=== PATIENT | male | born 1950 | race Caucasian/White ===

== ENCOUNTER → 2023-06-04 09:24 | Outpatient (REF) | payer MEDICARE, OTHER, SELFPAY ==
[2023-06-04 12:59] LABS: ALT (SGPT) 20 U/L (0-50); AST (SGOT) 24 U/L (17-59); Albumin 4.3 g/dl (3.5-5.0); Alkaline Phosphatase 49 U/L (38-126); Blood Urea Nitrogen 21 mg/dl (9-20); Carbon Dioxide 26 mmol/L (22-30); Chloride 99 mmol/L (98-107); Glucose 142 mg/dl (70-99); HDL Cholesterol 35 mg/dl; LDL Cholesterol, Calculated 73 mg/dl; Sodium 137 mmol/L (135-145); Total Bilirubin 0.8 mg/dl (0.2-1.3); Total Cholesterol 132 mg/dl (50-199); Total Protein 7.5 g/dl (6.3-8.2); Triglyceride 121 mg/dl (10-149); Very Low Density Lipoprotein 24 mg/dl (0-30); eGFR > 60.00
[2023-06-04 13:01] LABS: Microalbumin, Random Urine 5.2 mg/dl (0.6-1.7)
[2023-06-04 13:07] LABS: Microalbumin/creatinine Ratio 30.7 mg/g
[2023-06-04 13:16] LABS: Glycohemoglobin (HgbA1c) 6.8 % (4.0-5.6)
== END ==
LOC: HWLAB 09:24
PROVIDERS: ATTENDING PHYSICIAN Internal Medicine Endocrinology, Diabetes & Metabolism; FAMILY PHYSICIAN Nurse Practitioner Adult Health
DX: E11.40 Type 2 diabetes mellitus with diabetic neuropathy, unspecified (principal)
CPT/HCPCS: 36415; 80053; 80061; 82043; 82570; 83036

== ENCOUNTER → 2023-10-19 09:43 | Outpatient (REF) | payer MEDICARE, OTHER, SELFPAY ==
[2023-10-19 13:13] LABS: Glycohemoglobin (HgbA1c) 6.6 % (4.0-5.6)
[2023-10-19 13:15] LABS: ALT (SGPT) 15 U/L (0-50); AST (SGOT) 22 U/L (17-59); Albumin 4.1 g/dl (3.5-5.0); Alkaline Phosphatase 50 U/L (38-126); Blood Urea Nitrogen 14 mg/dl (9-20); Calcium 9.1 mg/dl (8.4-10.2); Carbon Dioxide 29 mmol/L (22-30); Chloride 102 mmol/L (98-107); Glucose 161 mg/dl (70-99); HDL Cholesterol 33 mg/dl; LDL Cholesterol, Calculated 90 mg/dl; Potassium 4.3 mmol/L (3.5-5.1); Sodium 138 mmol/L (135-145); Total Bilirubin 0.5 mg/dl (0.2-1.3); Total Cholesterol 149 mg/dl (50-199); Total Protein 6.9 g/dl (6.3-8.2); Triglyceride 131 mg/dl (10-149); Very Low Density Lipoprotein 26 mg/dl (0-30); eGFR > 60.00
[2023-10-19 14:14] LABS: Microalbumin, Random Urine 1.1 mg/dl (0.6-1.7)
[2023-10-19 14:15] LABS: Microalbumin/creatinine Ratio 9.5 mg/g
== END ==
LOC: HWLAB 09:43
PROVIDERS: ATTENDING PHYSICIAN Internal Medicine Endocrinology, Diabetes & Metabolism; FAMILY PHYSICIAN Nurse Practitioner Adult Health
DX: E11.40 Type 2 diabetes mellitus with diabetic neuropathy, unspecified (principal)
CPT/HCPCS: 36415; 80053; 80061; 82043; 82570; 83036

== ENCOUNTER → 2024-03-24 10:34 | Outpatient (REF) | payer MEDICARE, OTHER, SELFPAY ==
[2024-03-24 13:22] LABS: % Basophils 0.8 % (0-2); % Eosinophils 3.2 % (0-6); % Immature Granulocytes 0.2 % (0-0.5); % Monocytes 6.9 % (1.7-9.3); % Neutrophils 45.9 % (42.2-75.2); Absolute Eosinophils 0.2 10^3/uL (0-0.7); Absolute Lymphocytes 2.3 10^3/uL (1.2-3.4); Absolute Monocytes 0.4 10^3/uL (0.1-0.6); Absolute Neutrophils 2.4 10^3/uL (1.4-6.5); Hematocrit 38.6 % (39.0-52.0); Hemoglobin 12.9 g/dL (13.0-18.0); Mean Corp Hgb Conc. 33.4 g/dL (33.0-37.0); Mean Corpuscular Hgb 28.9 pg (27.0-31.0); Mean Corpuscular Volume 86.5 fL (80.0-94.0); Mean Platelet Volume 9.9 fL (7.4-10.4); Nucleated Red Blood Cells % 0 % (-); Platelet Count 208 10^3/uL (130-400); Red Blood Cell Count 4.46 10^6/uL (4.70-6.10); Red Cell Dist. Width 13.1 % (11.5-14.5); White Blood Cell Count 5.3 10^3/uL (4.8-10.8)
[2024-03-24 13:30] LABS: Blood Urea Nitrogen 24 mg/dl (9-20); Calcium 8.9 mg/dl (8.4-10.2); Carbon Dioxide 30 mmol/L (22-30); Chloride 97 mmol/L (98-107); Glucose 183 mg/dl (70-99); Potassium 4.4 mmol/L (3.5-5.1); Sodium 136 mmol/L (135-145); eGFR > 60.00
[2024-03-24 14:01] LABS: PSA, Total - Diagnostic 1.13 ng/ml (0.0-4.0)
== END ==
LOC: HWLAB 10:34
PROVIDERS: ATTENDING PHYSICIAN Orthopaedic Surgery; FAMILY PHYSICIAN Nurse Practitioner Adult Health; REFERRING PHYSICIAN Urology
DX: N40.1 Benign prostatic hyperplasia with lower urinary tract symptoms (principal); Z01.818 Encounter for other preprocedural examination
CPT/HCPCS: 36415; 80048; 84153; 85025

== ENCOUNTER 2024-06-18 10:11 | Emergency (ER) | payer MEDICARE, OTHER, SELFPAY ==
[2024-06-18 10:13] VITALS: BP 149/92
--- NOTE | 2024-06-18 10:53 | ED.GENMED ---
History of Present Illness
General
Chief Complaint: Skin Problem
Source: patient
Time Seen by Provider: 06/18/24 10:32
History of Present Illness
History of Present Illness:
74-year-old male with past medical history of atrial fibrillation, CVA, hypertension, [id number] diabetes, CLL presenting to the ER for evaluation after he was outside digging out a tree branch when part of the branch of braised his left
lower leg causing a bleeding varicose vein, bleeding controlled with dressing. Unknown last tetanus vaccine. No other injury sustained
Past History
Past History
ED Past Medical History: Arrthythmia, Cancer, CVA, HTN, NIDDM and Other (CLL)
ED Past Surgical History: None
Social History
Tobacco: Non-smoker
Alcohol: None
Drug: None
Personal:
Living: with family
Review of Systems
Review of Systems
All Other Systems: ROS reviewed and negative except as documented in HPI and ROS
Phy Exam
Physical Exam
Physical Exam:
GENERAL: Alert , in no apparent distress
EYE: conjunctiva clear
Head: Normocephalic atraumatic
NECK: Supple,
ENT: mmm.
LUNGS: no acute respiratory distress
NEUROLOGICAL: Alert and oriented
SKIN: Warm and dry, small less than 8 mm skin tear to the mid anterior left lower leg with underlying varicose vein with continuous venous blood oozing, no arterial spurting.
MUSCULOSKELETAL: well perfused.
PSYCH: Normal and appropriate interaction.
Scores
Heart Failure Risk
Heart Failure Risk Score: Not Applicable
Heart Score for Chest Pain Patients
STEMI patient?: Not applicable
Withdrawal Assessment of Alcohol
Withdrawal Assessment Completed?: Not applicable
Course
Orders/Labs/Results
Orders:
Orders
06/18/24 10:53
Tetanus/Diphth/Acelpertussis [Adacel] 0.5 ml IM .ONCE ONE
Vital Signs
Initial and Last Documented VS:
Initial Vital Signs
Temp Pulse Resp BP Pulse Ox
97.5 F 66 18 149/92 99
06/18/24 10:13 06/18/24 10:13 06/18/24 10:13 06/18/24 10:13 06/18/24 10:13
Last Documented Vital Signs
Temp Pulse Resp BP Pulse Ox
97.5 F 66 18 149/92 99
06/18/24 10:13 06/18/24 10:13 06/18/24 10:13 06/18/24 10:13 06/18/24 10:13
Procedures
Laceration Closure
Left Lower Anterior Leg:
Status of Wound: clean
Size of Wound in cm: 0.8
Description of Wound Edges: sharp
Preparation: cleaned with saline
Anesthesia: 1% Lidocaine with epi
Revision/Debridement: routine- no revision
Type of Closure: mattress sutures
Skin Closure Material: 4-0 nylon
Number of sutures: 1
MDM/Problems Addressed
Differential Diagnosis Includes:
Laceration, bleeding varicose vein, skin tear
MDM/Problems Addressed:
74-year-old male presenting the ER for evaluation of puncture wound sustained while taking out a tree branch earlier this morning. On Xarelto due to history of atrial fibrillation and previous CVA. Patient is in no acute distress and
hemodynamically stable. I placed 1 horizontal mattress suture with good hemostasis but slight oozing remained. Gelfoam placed over top of this with pressure dressing including an Antonio bandage. Advised ice and elevation to help keep the area from
bleeding again. Advised patient on wound care, suture removal in 7 to 10 days. Aware of return precautions to the ER. Will also update patient's tetanus prior to discharge.
*Pulse Oximetry
Patient hypoxic: no
*Critical Care Note
Total Time (30-74mins, 75-104mins- exclusive of procedures): Not Applicable
ED Attending Note
-
Portions of this chart may have been created with voice recognition software.� Occasional wrong word or��sound alike� substitutions may have occurred due to the inherent limitations of voice recognition software.
Discharge Plan
Departure
Patient Disposition: Home (Routine Discharge)
Date of Disposition: 06/18/24
Time of Disposition: 10:53
Patient with high blood pressure during this ER visit?: Yes
Discharge Problem:
Bleeding from varicose vein
Instructions: Wound Care (DC)
Prescriptions:
No Action
amoxicillin-pot clavulanate [Augmentin] 1 EACH tablet
1 ea PO BID Qty: 20 0RF
Activity Restrictions/Additional Instructions:
Suture removal in 10 days
Interventions
Interventions:
*Risk Screen - Suicide Last Done: 06/18/24 10:13
*General Assessment Last Done: 06/18/24 10:13
*Neglect/Abuse Screening Last Done: 06/18/24 10:13
Discharge Date and Time
Print Language: SWEDISH
[2024-06-18] MEDS: ADACEL 0.5 ML IM (11:04)
[2024-06-18 11:15] VITALS: BP 117/76
== END 2024-06-18 11:15 | disposition home or self-care (01) ==
LOC: EMR 10:11
PROVIDERS: EMERGENCY PHYSICIAN Student in an Organized Health Care Education/Training Program; FAMILY PHYSICIAN Nurse Practitioner Adult Health
DX: I83.892 Varicose veins of left lower extremity with other complications (principal); S81.812A Laceration without foreign body, left lower leg, initial encounter; W22.8XXA Striking against or struck by other objects, initial encounter; I48.91 Unspecified atrial fibrillation; E11.9 Type 2 diabetes mellitus without complications; C91.10 Chronic lymphocytic leukemia of B-cell type not having achieved remission; Z86.73 Personal history of transient ischemic attack (TIA), and cerebral infarction without residual deficits; Z79.01 Long term (current) use of anticoagulants; Z23 Encounter for immunization
CPT/HCPCS: 90471; 12001; 99282; 90715

== ENCOUNTER → 2024-08-17 10:06 | Outpatient (REF) | payer MEDICARE, OTHER, SELFPAY ==
[2024-08-17 17:43] LABS: ALT (SGPT) 21 U/L (0-50); AST (SGOT) 22 U/L (17-59); Albumin 4.2 g/dl (3.5-5.0); Alkaline Phosphatase 43 U/L (38-126); Blood Urea Nitrogen 15 mg/dl (9-20); Calcium 8.9 mg/dl (8.4-10.2); Carbon Dioxide 29 mmol/L (22-30); Chloride 107 mmol/L (98-107); Glucose 151 mg/dl (70-99); HDL Cholesterol 30 mg/dl; LDL Cholesterol, Calculated 92 mg/dl; Potassium 4.6 mmol/L (3.5-5.1); Sodium 142 mmol/L (135-145); Total Bilirubin 0.6 mg/dl (0.2-1.3); Total Cholesterol 149 mg/dl (50-199); Total Protein 7.1 g/dl (6.3-8.2); Triglyceride 139 mg/dl (10-149); Very Low Density Lipoprotein 27 mg/dl (0-30); eGFR > 60.00
[2024-08-17 17:56] LABS: Microalbumin, Random Urine 1.1 mg/dl (0.6-1.7)
[2024-08-17 17:58] LABS: Microalbumin/creatinine Ratio 10.6 mg/g
[2024-08-17 19:01] LABS: Hemoglobin 13.1 g/dL (13.0-18.0); Mean Corp Hgb Conc. 33.6 g/dL (33.0-37.0); Mean Corpuscular Hgb 29.1 pg (27.0-31.0); Mean Corpuscular Volume 86.7 fL (80.0-94.0); Mean Platelet Volume 10.4 fL (7.4-10.4); Platelet Count 195 10^3/uL (130-400); White Blood Cell Count 4.8 10^3/uL (4.8-10.8)
[2024-08-18 09:09] LABS: Glycohemoglobin (HgbA1c) 6.2 % (4.0-5.6)
== END ==
LOC: HWLAB 10:06
PROVIDERS: ATTENDING PHYSICIAN Internal Medicine Endocrinology, Diabetes & Metabolism; FAMILY PHYSICIAN Nurse Practitioner Adult Health
DX: E11.40 Type 2 diabetes mellitus with diabetic neuropathy, unspecified (principal)
CPT/HCPCS: 36415; 80053; 80061; 82043; 82570; 83036; 85027

== ENCOUNTER → 2025-02-17 09:27 | Outpatient (REF) | payer MEDICARE, OTHER, SELFPAY ==
[2025-02-17 09:56] LABS: Hematocrit 38.8 % (39.0-52.0); Hemoglobin 12.8 g/dL (13.0-18.0); Mean Corp Hgb Conc. 33.0 g/dL (33.0-37.0); Mean Corpuscular Volume 86.8 fL (80.0-94.0); Platelet Count 216 10^3/uL (130-400); Red Cell Dist. Width 13.4 % (11.5-14.5)
[2025-02-17 10:30] LABS: Albumin 4.2 g/dl (3.5-5.0)
[2025-02-17 10:39] LABS: Glycohemoglobin (HgbA1c) 6.5 % (4.0-5.9)
[2025-02-17 10:51] LABS: ALT (SGPT) 18 U/L (0-50); AST (SGOT) 21 U/L (17-59); Alkaline Phosphatase 49 U/L (38-126); Blood Urea Nitrogen 12 mg/dl (9-20); Calcium 9.3 mg/dl (8.4-10.2); Carbon Dioxide 30 mmol/L (22-30); Chloride 104 mmol/L (98-107); Glucose 128 mg/dl (70-99); HDL Cholesterol 26 mg/dl; LDL Cholesterol, Calculated 102 mg/dl; Potassium 4.3 mmol/L (3.5-5.1); Sodium 138 mmol/L (135-145); Total Protein 7.3 g/dl (6.3-8.2); Very Low Density Lipoprotein 24 mg/dl (0-30); eGFR > 60.00
[2025-02-17 11:03] LABS: Microalb - Urine Creatinine 94.900 mg/dl
[2025-02-17 11:08] LABS: Microalbumin, Random Urine 1.6 mg/dl (0.6-1.7)
== END ==
LOC: REG 09:27
PROVIDERS: ATTENDING PHYSICIAN Internal Medicine Endocrinology, Diabetes & Metabolism; FAMILY PHYSICIAN Nurse Practitioner Adult Health
DX: E11.40 Type 2 diabetes mellitus with diabetic neuropathy, unspecified (principal)
CPT/HCPCS: 36415; 80053; 80061; 82043; 82570; 83036; 85027